=== PATIENT | female | born 1995 | race Caucasian/White ===

== ENCOUNTER 2017-02-10 06:05 | Inpatient (IN) | payer MEDICAID ==
[2017-02-10 06:38] LABS: % BASOPHILS 0.2 % (0.0-2.0); % EOSINOPHILS 3.7 % (0.0-5.0); % LYMPHOCYTES 39.1 % (20.0-50.0); % MONOCYTES 4.6 % (2.0-10.0); % NEUTROPHILS 52.4 % (40.0-80.0); HEMATOCRIT 39.6 % (41.0-60); HEMOGLOBIN 13.7 gm/dL (12-16); MEAN CELL VOLUME 84.5 fl (81-100); MEAN CORPUSCULAR HEMOGLOBIN 29.2 pg (27.0-31.0); MEAN CORPUSCULAR HGB CONC 34.5 pg (28.0-36.0); MEAN PLATELET VOLUME 7.1 fl; NEUTROPHILE ABSOLUTE 6.4 Th/cmm (1.8-8.0); PLATELET COUNT 357 Th/cmm (150-400); RED BLOOD COUNT 4.69 Mil/cmm (3.80-5.10); RED CELL DISTRIBUTION WIDTH 13.3 % (11.5-20.0)
[2017-02-10 06:41] LABS: WHITE BLOOD COUNT 12.3 Th/cmm (4.8-10.8)
[2017-02-10 06:52] LABS: ALB/GLOB RATIO 1.3 (1.0-1.8); ALKALINE PHOSPHATASE 81 U/L (34-104); ANION GAP 7.5 (7.0-16.0); BILIRUBIN,TOTAL 0.3 mg/dL (0.3-1.0); BUN - UREA NITROGEN 14 mg/dL (7-25); BUN/CREATININE RATIO 23.3; CALCIUM SERUM 8.5 mg/dL (8.6-10.3); CARBON DIOXIDE 27.9 mEq/L (21.0-31.0); CHLORIDE 105 mEq/L (98-107); CREATININE - SERUM 0.6 mg/dL (0.6-1.2); GLUCOSE 99 mg/dL (70-105); POTASSIUM SERUM 3.4 mEq/L (3.5-5.1); SGOT 33 U/L (13-39); SGPT/ALT 34 U/L (7-52); SODIUM SERUM 137 mEq/L (136-145)
[2017-02-10 06:53] LABS: URINE BILIRUBIN NEGATIVE (NEGATIVE); URINE BLOOD SMALL (NEGATIVE); URINE GLUCOSE (UA) NEGATIVE (NEGATIVE); URINE KETONE NEGATIVE (NEGATIVE); URINE PROTEIN NEGATIVE (NEGATIVE); URINE UROBILINOGEN 0.2 E.U./dL (0.2 - 1.0)
[2017-02-10 06:54] LABS: URINE COLOR YELLOW
[2017-02-10 06:59] LABS: URINE BACTERIA FEW /hpf (NONE SEEN); URINE EPITHELIAL CELLS MODERATE /lpf (FEW)
[2017-02-10 07:00] LABS: URINE AMORPHOUS SEDIMENT MODERATE PHOSPHATES (NONE SEEN)
--- NOTE | 2017-02-10 07:11 | ED Physician Chart ---
ED Chief Complaint/HPI - Patient Information Date Seen:: 02/10/17 Time Seen:: 15:00 Chief Complaint:: chest pain History of Present Illness:: location: chest quality: sharp pain severity: mild, moderate duration: one hour prior to arrival context: pt reports onset of chest pain, no vomiting, no nausea, no belching. has not had chest pain prior, was wondering if the chest pain was due to an anxiety attack, has prior history of anxiety attacks and sometimes has chest pain. no shortness of breath, no fever. mod factors: none assoc s/s: none hx from pt. Allergies:: Allergies Allergy/AdvReac Type Severity Reaction Status Date / Time No Known Allergies Allergy Verified 02/10/17 06:14 Vitals:: Vital Signs - 8 hr 02/10/17 06:05 Temp 98.1 F HR 76 RR 18 BP 137/63 O2 Sat % 96 Historian:: Patient Review:: Nurse's Note Reviewed ED Review of Systems - Review of Systems General/Constitutional: No fever, No chills, No weight loss, No weakness, No diaphoresis, No edema, No loss of appetite Skin: No skin lesions, No rash, No bruising Head: No headache, No light-headedness Eyes: No loss of vision, No pain, No diplopia ENT: No earache, No nasal drainage, No sore throat, No tinnitus Neck: No neck pain, No swelling, No thyromegaly, No stiffness, No mass noted Cardio Vascular: Chest pain, No palpitations, No PND, No orthopnea, No edema Pulmonary: No SOB, No cough, No sputum, No wheezing GI: No nausea, No vomiting, No diarrhea, No pain, No melena, No hematochezia, No constipation, No hematemesis G/U: No dysuria, No frequency, No hematuria Musculoskeletal: No bone or joint pain, No back pain, No muscle pain Endocrine: No polyuria, No polydipsia Psychiatric: No prior psych history, No depression, Anxiety, No suicidal ideation Hematopoietic: No bruising, No lymphadenopathy Allergic/Immuno: No urticaria, No angioedema Neurological: No syncope, No focal symptoms, No weakness, No paresthesia, No headache, No seizure, No dizziness, No confusion, No vertigo ED Past Medical History - Past Medical History Past Medical History: No significant medical hx, Other Family History: None Social History: Non Smoker, No Alcohol, No Drug Use, Single, Lives With Parents Surgical History: None Psychiatricy History: Other (anxiety) Medication: None Family Medical History - Family Member Mother Hx Family Diabetes: Yes ED Physical Exam - Physical Examination General/Constitutional: Awake, Well-developed, well-nourished, Alert, No distress, GCS 15, Non-toxic appearing, Ambulatory Head: Atraumatic Eyes: Lids, conjuctiva normal, PERRL, EOMI Skin: Nl inspection, No rash, No skin lesions, No ecchymosis, Well hydrated, No lymphadenopathy ENMT: External ears, nose nl, Nasal exam nl, Lips, teeth, gums nl Neck: Nontender, Full ROM w/o pain, No JVD, No nuchal rigidity, No bruit, No mass, No stridor Respiratory: Nl effort/Exclusion, Clear to Auscultation, No Wheeze/Rhonchi/Rales Cardio Vascular: RRR, No murmur, gallop, rubs, NL S1 S2 GI: No tenderness/rebounding/guarding, No organomegaly, Normal BS's, Nondistended, No mass/bruits, No McBurney tenderness : No CVA tenderness Extremities: No tenderness or effusion, Full ROM, normal strength in all extremities, No edema, Normal digits & nails Neuro/Psych: Alert/oriented, Normal sensory exam, Judgement/insight normal, Mood normal, No focal deficits Misc: Normal back, No paraspinal tenderness ED Labs/Radiology/EKG Results - Lab Results Results: Laboratory Tests 02/10/17 02/10/17 02/10/17 06:29 06:30 06:30 WBC 12.3 H RBC 4.69 Hgb 13.7 Hct 39.6 L MCV 84.5 MCH 29.2 MCHC Differential 34.5 RDW 13.3 Plt Count 357 MPV 7.1 Neutrophils % 52.4 Lymphocytes % 39.1 Monocytes % 4.6 Eosinophils % 3.7 Basophils % 0.2 Sodium 137 Potassium 3.4 L Chloride 105 Carbon Dioxide 27.9 Anion Gap 7.5 BUN 14 Creatinine 0.6 Est GFR ( Amer) > 60.0 Est GFR (Non-Af Amer) > 60.0 BUN/Creatinine Ratio 23.3 Glucose 99 Calcium 8.5 L Total Bilirubin 0.3 AST 33 ALT 34 Alkaline Phosphatase 81 Troponin I Total Protein 6.5 Albumin 3.7 Globulin 2.8 Albumin/Globulin Ratio 1.3 Urine Source Urine Color Urine Clarity Urine pH Ur Specific [place] Urine Protein Urine Glucose (UA) Urine Ketones Urine Blood Urine Nitrate Urine Bilirubin Urine Urobilinogen Ur Leukocyte Esterase Urine RBC Urine WBC Ur Epithelial Cells Amorphous Sediment Urine Bacteria POC Ur Test Negative 02/10/17 02/10/17 06:30 06:30 WBC RBC Hgb Hct MCV MCH MCHC Differential RDW Plt Count MPV Neutrophils % Lymphocytes % Monocytes % Eosinophils % Basophils % Sodium Potassium Chloride Carbon Dioxide Anion Gap BUN Creatinine Est GFR ( Amer) Est GFR (Non-Af Amer) BUN/Creatinine Ratio Glucose Calcium Total Bilirubin AST ALT Alkaline Phosphatase Troponin I < 0.01 L Total Protein Albumin Globulin Albumin/Globulin Ratio Urine Source RANDOM Urine Color YELLOW Urine Clarity HAZY Urine pH 7.0 Ur Specific [place] 1.020 Urine Protein NEGATIVE Urine Glucose (UA) NEGATIVE Urine Ketones NEGATIVE Urine Blood SMALL H Urine Nitrate NEGATIVE Urine Bilirubin NEGATIVE Urine Urobilinogen 0.2 Ur Leukocyte Esterase SMALL H Urine RBC 2-5 Urine WBC 6-10 H Ur Epithelial Cells MODERATE Amorphous Sediment MODERATE PHOSPHATES Urine Bacteria FEW POC Ur Test ED Assessment - Assessment General Assessment: medical decision making: pt with no history of cardiac chest pain but pt is morbidly obese more than 125 pounds above ideal body weight. will consider her cardiac eval very seriously as she is at risk for genuine cardiac ischemia. pt is informed of this. and pt says she understands. pt case transfer to Dr. Cabrera at change of shift 0700 ED Septic Shock - . Is Septic Shock (SBP<90, OR Lactate>4 mmol\L) present?: No - <6hrs of presentation: Vital Signs: Vital Signs - 8 hr 02/10/17 06:05 Temp 98.1 F HR 76 RR 18 BP 137/63 O2 Sat % 96
--- NOTE | 2017-02-10 08:39 | Diagnostic Imaging Report ---
Portable chest x-ray History: Chest pain Allowing for portable technique the heart size is normal. No focal pulmonary parenchymal processes. No hilar or mediastinal abnormalities. Impression: No acute abnormalities.
[2017-02-10] MEDS ORDERED: cefTRIAXone 1 GM in Sodium Chloride 0.9% 50 ML IV ONE (08:42)
[2017-02-10] MEDS ORDERED: Potassium Chloride 20 mEq ER Tab PO ONE ×2 (08:43→09:16)
[2017-02-10] MEDS ORDERED: Pneumococcal Vaccine 0.5 mL Vial IM ONE (10:58)
--- NOTE | 2017-02-10 12:33 | History & Physical ---
ADMIT DATE: 02/10/2017 HISTORY OF PRESENT ILLNESS: The patient came to the Emergency Room complaining of chest pain. The patient was admitted for unstable angina, hypokalemia, obesity, angina pectoris, UTI, and sepsis. The patient complaining of pain for the last several days and the patient was seen by Dr. Shell first and then ____. The patient complains of sharp retrosternal chest pain radiating to the back. The patient had no nausea, no vomiting, no diarrhea. No fever, no chills, no rigors, no other problems. REVIEW OF SYSTEMS: Otherwise, negative. PAST MEDICAL HISTORY: As enumerated above. History of prior chest pains, history of obesity. PHYSICAL EXAMINATION: GENERAL: Awake, alert, obese female. VITAL SIGNS: As noted in chart. HEAD: Normal. ENT: Normal. NECK: Supple and nontender. LUNGS: Clear. CARDIOVASCULAR: S1, S2 heard. ABDOMEN: Soft. LABORATORY DATA: First set of cardiac enzymes are normal. WBC was high at 12.3 and troponin was okay. DIAGNOSES: Chest pain, rule out acute coronary syndrome, possible urinary tract infection, leukocytosis, severe obesity. PLAN: The patient is being admitted. I will give her Rocephin and I will have Dr. Padgett see the patient and also we will have Dr. Cody Padgett see the patient. I will follow the patient. JOB# [id number]
[2017-02-11] MEDS ORDERED: cefTRIAXone 1 GM in Sodium Chloride 0.9% 50 ML IV SCH (05:00)
[2017-02-11 05:58] LABS: % BASOPHILS 0.2 % (0.0-2.0); % EOSINOPHILS 2.9 % (0.0-5.0); % MONOCYTES 4.8 % (2.0-10.0); % NEUTROPHILS 64.1 % (40.0-80.0); HEMATOCRIT 40.8 % (41.0-60); HEMOGLOBIN 13.8 gm/dL (12-16); MEAN CELL VOLUME 85.1 fl (81-100); MEAN CORPUSCULAR HEMOGLOBIN 28.9 pg (27.0-31.0); MEAN CORPUSCULAR HGB CONC 33.9 pg (28.0-36.0); MEAN PLATELET VOLUME 7.7 fl; NEUTROPHILE ABSOLUTE 6.6 Th/cmm (1.8-8.0); PLATELET COUNT 340 Th/cmm (150-400); RED BLOOD COUNT 4.79 Mil/cmm (3.80-5.10); RED CELL DISTRIBUTION WIDTH 13.5 % (11.5-20.0); WHITE BLOOD COUNT 10.3 Th/cmm (4.8-10.8)
[2017-02-11 06:15] LABS: BUN - UREA NITROGEN 9 mg/dL (7-25); CALCIUM SERUM 8.9 mg/dL (8.6-10.3); CARBON DIOXIDE 24.6 mEq/L (21.0-31.0); CHLORIDE 105 mEq/L (98-107); CREATININE - SERUM 0.5 mg/dL (0.6-1.2); GLUCOSE 102 mg/dL (70-105); POTASSIUM SERUM 3.6 mEq/L (3.5-5.1); SODIUM SERUM 135 mEq/L (136-145)
--- NOTE | 2017-02-11 10:33 | General Progress Note ---
Subjective - Review of Systems Events since last encounter: patient with no distress Objective - Results Result Diagrams: 02/11/17 04:47 02/11/17 04:47 Recent Labs: Laboratory Last Values WBC 10.3 Th/cmm (4.8-10.8) 02/11/17 04:47 RBC 4.79 Mil/cmm (3.80-5.10) 02/11/17 04:47 Hgb 13.8 gm/dL (12-16) 02/11/17 04:47 Hct 40.8 % (41.0-60) L 02/11/17 04:47 MCV 85.1 fl (81-100) 02/11/17 04:47 MCH 28.9 pg (27.0-31.0) 02/11/17 04:47 MCHC Differential 33.9 pg (28.0-36.0) 02/11/17 04:47 RDW 13.5 % (11.5-20.0) 02/11/17 04:47 Plt Count 340 Th/cmm (150-400) 02/11/17 04:47 MPV 7.7 fl 02/11/17 04:47 Neutrophils % 64.1 % (40.0-80.0) 02/11/17 04:47 Lymphocytes % 28.0 % (20.0-50.0) 02/11/17 04:47 Monocytes % 4.8 % (2.0-10.0) 02/11/17 04:47 Eosinophils % 2.9 % (0.0-5.0) 02/11/17 04:47 Basophils % 0.2 % (0.0-2.0) 02/11/17 04:47 Sodium 135 mEq/L (136-145) L 02/11/17 04:47 Potassium 3.6 mEq/L (3.5-5.1) 02/11/17 04:47 Chloride 105 mEq/L (98-107) 02/11/17 04:47 Carbon Dioxide 24.6 mEq/L (21.0-31.0) 02/11/17 04:47 Anion Gap 9.0 (7.0-16.0) 02/11/17 04:47 BUN 9 mg/dL (7-25) 02/11/17 04:47 Creatinine 0.5 mg/dL (0.6-1.2) L 02/11/17 04:47 Est GFR ( Amer) > 60.0 ml/min (>90) 02/11/17 04:47 Est GFR (Non-Af Amer) > 60.0 ml/min 02/11/17 04:47 BUN/Creatinine Ratio 18.0 02/11/17 04:47 Glucose 102 mg/dL (70-105) 02/11/17 04:47 POC Glucose 106 MG/DL (70 - 105) H 02/10/17 10:43 Whole Bld Lactic Acid 0.67 mmol/L (0.60-1.99) 02/10/17 06:50 Calcium 8.9 mg/dL (8.6-10.3) 02/11/17 04:47 Total Bilirubin 0.3 mg/dL (0.3-1.0) 02/10/17 06:30 AST 33 U/L (13-39) 02/10/17 06:30 ALT 34 U/L (7-52) 02/10/17 06:30 Alkaline Phosphatase 81 U/L (34-104) 02/10/17 06:30 Troponin I < 0.01 ng/mL (0.01-0.05) L 02/10/17 06:30 Total Protein 6.5 gm/dL (6.0-8.3) 02/10/17 06:30 Albumin 3.7 gm/dL (3.7-5.3) 02/10/17 06:30 Globulin 2.8 gm/dL 02/10/17 06:30 Albumin/Globulin Ratio 1.3 (1.0-1.8) 02/10/17 06:30 Urine Source RANDOM 02/10/17 06:30 Urine Color YELLOW 02/10/17 06:30 Urine Clarity HAZY (CLEAR) 02/10/17 06:30 Urine pH 7.0 (4.6 - 8.0) 02/10/17 06:30 Ur Specific [place] 1.020 (1.005-1.030) 02/10/17 06:30 Urine Protein NEGATIVE mg/dL (NEGATIVE) 02/10/17 06:30 Urine Glucose (UA) NEGATIVE mg/dL (NEGATIVE) 02/10/17 06:30 Urine Ketones NEGATIVE mg/dL (NEGATIVE) 02/10/17 06:30 Urine Blood SMALL (NEGATIVE) H 02/10/17 06:30 Urine Nitrate NEGATIVE (NEGATIVE) 02/10/17 06:30 Urine Bilirubin NEGATIVE (NEGATIVE) 02/10/17 06:30 Urine Urobilinogen 0.2 E.U./dL (0.2 - 1.0) 02/10/17 06:30 Ur Leukocyte Esterase SMALL (NEGATIVE) H 02/10/17 06:30 Urine RBC 2-5 /hpf (0-5) 02/10/17 06:30 Urine WBC 6-10 /hpf (0-5) H 02/10/17 06:30 Ur Epithelial Cells MODERATE /lpf (FEW) 02/10/17 06:30 Amorphous Sediment MODERATE PHOSPHATES (NONE SEEN) 02/10/17 06:30 Urine Bacteria FEW /hpf (NONE SEEN) 02/10/17 06:30 POC Ur Test Negative 02/10/17 06:29 - Physical Exam Vitals and I&O: Vital Signs Temp 97.6 F 02/11/17 08:11 Pulse 61 02/11/17 08:11 Resp 18 02/11/17 10:00 BP 127/66 02/11/17 08:11 Pulse Ox 100 02/11/17 08:11 Intake & Output 02/10/17 02/11/17 02/11/17 18:59 06:59 18:59 Intake Total 50 Balance 50 Weight (lbs) 150.457 kg Intake: Intake, IV Amount 50 cefTRIAXone 1 gm In 50 Sodium Chloride 0.9% 50 ml @ 100 mls/hr IV Q24HR [facility] Rx#:[id number] Other: # Voids 1 Active Medications: Current Medications Ceftriaxone Sodium 1 gm/ (Sodium Chloride) 50 mls @ 100 mls/hr IV Q24HR [facility] Stop: 04/12/17 04:59 Last Infusion: 02/11/17 05:41 Dose: Infused General: No acute distress Cardiovascular: Regular rate, Normal S1, Normal S2 Abdomen: Bowel sounds Assessment/Plan - Problem List Patient Problems: All Active Problems Chest pain (Acute) R07.9 Leukocytosis (Acute) D72.829 Possible urinary tract infection (Acute) N39.0 Severe obesity (Acute) E66.01 - Plan Plan: monitor vitals/diet labs f/up consultants
--- NOTE | 2017-02-11 18:34 | Consultation ---
DATE OF CONSULTATION: 02/10/[address] Paredes. HISTORY AND PHYSICAL: This is a 21-year-old morbidly female patient, who had been complaining of chest pain, pressure type. Following this, the patient came to the Emergency Room. According to the patient and the family, the patient is under lot of stress as the patient does not work and has financial problems. PAST MEDICAL HISTORY: Obesity. FAMILY HISTORY: Unremarkable. SOCIAL HISTORY: The patient uses marijuana. ALLERGIES: None. PHYSICAL EXAMINATION: VITAL SIGNS: Blood pressure 130/80, pulse 70, respirations 20. HEAD: Normocephalic. No lumps or bumps. EYES: Pupils equal, reactive to light. Fundi show AV nicking, sclerae white, conjunctivae pink. NECK: Carotid 2+. Normal upstroke. JVD flat. Thyroid not palpable. Lymph nodes not palpable. CHEST: Shows increased AP diameter. No kyphosis, scoliosis. LUNGS: Bilateral bronchovesicular breath sounds. HEART: PMI fifth intercostal space with lateral to midclavicular line. S1, S2. No S3, S4. Systolic murmur, grade 2/6, lower left sternal border without radiation. ABDOMEN: Soft. Liver and spleen are not palpable. No organomegaly. Bowel sounds are active. NEUROLOGIC: Unremarkable. EXTREMITIES: Peripheral pulses 2+. No pedal edema. CLINICAL IMPRESSION: Atypical chest pain, morbid obesity, obstructive sleep apnea, anxiety, marijuana addict. PLAN: The patient's troponin levels normal. EKG unremarkable. The patient is medically stable. The patient to have psych evaluation for anxiety. JOB# [id number]
--- NOTE | 2017-02-14 00:59 | Discharge Summary ---
DATE OF DISCHARGE: 02/11/2017 Basically, this patient came with history of chest pain, acute coronary syndrome, possible UTI, leukocytosis, and severe obesity. The patient ____workup done and the patient was stable. ____ negative. The patient was sent home in stable condition on 02/11/2017. Follow up with me in the office in 2 days and also Psych consultation with ____ for anxiety. JOB# [id number]
== END 2017-02-11 16:30 | disposition home or self-care (01) | DRG 720 ==
LOC: ER 06:05 → TELE 09:05
PROVIDERS: ADMIT Internal Medicine; ATTEND Internal Medicine
DX: A41.9 Sepsis, unspecified organism (principal); I20.0 Unstable angina; N39.0 Urinary tract infection, site not specified; Z68.43 Body mass index [BMI] 50.0-59.9, adult; E66.01 Morbid (severe) obesity due to excess calories; E87.6 Hypokalemia; F41.9 Anxiety disorder, unspecified; R07.89 Other chest pain; G47.33 Obstructive sleep apnea (adult) (pediatric); F12.20 Cannabis dependence, uncomplicated
CPT/HCPCS: 36415-UA; 71010-TC; 80048-TC; 80053-TC; 81001-TC; 81025-TC; 82948-90; 83605; 84484-TC; 85025-TC; 87086-90; 93005; J0696

== ENCOUNTER 2017-02-16 08:29 | Inpatient (IN) | payer MEDICAID ==
--- NOTE | 2017-02-16 08:48 | ED Physician Chart ---
ED Chief Complaint/HPI - Patient Information Date Seen:: 02/16/17 Time Seen:: 08:30 Chief Complaint:: Chest Pain History of Present Illness:: onset x 3.5 hours [employer] of pressure type, locailzed intermittent exertional and pleuritic type chest pain with dyspnea, N/V, and diaphoresis; no H/As, neck pain , cough, Abd. pain, A/D/C, fever, chills, or urinary s/s Allergies:: Allergies Allergy/AdvReac Type Severity Reaction Status Date / Time No Known Allergies Allergy Verified 02/10/17 06:14 Historian:: Patient, Family Member Review:: Nurse's Note Reviewed, Old Chart Reviewed ED Review of Systems - Review of Systems General/Constitutional: Fever, No chills, No weight loss, No weakness, No diaphoresis, No edema, No loss of appetite Skin: No skin lesions, No rash, No bruising Head: No headache, No light-headedness Eyes: No loss of vision, No pain, No diplopia ENT: No earache, Nasal drainage, No sore throat, No tinnitus Neck: No neck pain, No swelling, No thyromegaly, No stiffness, No mass noted Cardio Vascular: Chest pain, Palpitations, No PND, No orthopnea, No edema Pulmonary: SOB, Cough, No sputum, No wheezing GI: Nausea, Vomiting, No diarrhea, No pain, No melena, No hematochezia, No constipation, No hematemesis G/U: Dysuria, No frequency, No hematuria, No nacturia Coal Deliverer: No vaginal discharge, No abnormal vaginal bleed, No contraction Musculoskeletal: No bone or joint pain, No back pain, No muscle pain Endocrine: No polyuria, No polydipsia Psychiatric: No prior psych history, No depression, No anxiety, No suicidal ideation, No homicidal ideation, No auditory hallucination, No visual hallucination Hematopoietic: No bruising, No lymphadenopathy Allergic/Immuno: No urticaria, No angioedema Neurological: No syncope, No focal symptoms, No weakness, No paresthesia, No headache, No seizure, No dizziness, No confusion, No vertigo ED Past Medical History - Past Medical History Obtainable: Yes Past Medical History: Dyslipidemia, Other (Obesity; Angina Pectoris) Family History: Heart disease, Diabetes Melitus, HTN Social History: Non Smoker, No Alcohol, No Drug Use, Single Surgical History: None Psychiatricy History: None Medication: Reviewed Family Medical History - Family Member Mother Ethnicity: Living Status: Still Living Hx Family Cancer: Yes Hx Family Coronary Artery Disease: Yes Hx Family Congestive Heart Failure: No Hx Family Hypertension: Yes Hx Family Stroke: No Hx Family Diabetes: Yes Hx Family Seizures: No Hx Family Dementia: No Hx Family AIDS: No Hx Family HIV: No Hx Family COPD: No Hx Family Hepatitis: No Hx Family Psychiatric Problems: No Hx Family Tuberculosis: No ED Physical Exam - Physical Examination General/Constitutional: Awake, Well-developed, well-nourished, Alert, No distress, GCS 15, Non-toxic appearing, Ambulatory Head: Atraumatic Eyes: Lids, conjuctiva normal, PERRL, EOMI Skin: Nl inspection, No rash, No skin lesions, No ecchymosis, Well hydrated, No lymphadenopathy ENMT: External ears, nose nl, Nasal exam nl, Lips, teeth, gums nl Neck: Nontender, Full ROM w/o pain, No JVD, No nuchal rigidity, No bruit, No mass, No stridor Respiratory: Nl effort/Exclusion, Clear to Auscultation, No Wheeze/Rhonchi/Rales Cardio Vascular: RRR, No murmur, gallop, rubs, NL S1 S2 GI: No tenderness/rebounding/guarding, No organomegaly, No hernia, Normal BS's, Nondistended, No mass/bruits, No McBurney tenderness : No CVA tenderness Extremities: No tenderness or effusion, Full ROM, normal strength in all extremities, No edema, Normal digits & nails Neuro/Psych: Alert/oriented, DTR's symmetric, Normal sensory exam, Normal motor strength, Judgement/insight normal, Mood normal, Normal gait, No focal deficits Misc: Normal back, No paraspinal tenderness ED Labs/Radiology/EKG Results - EKG Interpretations EKG Time:: 08:32 Rate & Rhythm: 73; NSR Comments:: T-Wave inversions/ non-specific st-t changes ED Septic Shock - . Is Septic Shock (SBP<90, OR Lactate>4 mmol\L) present?: No ED Reassessment (Disposition) - Reassessment Reassessment Condition:: Improved - Diagnosis Diagnosis:: Chest Pain; Angina Pectoris; Unstable Angina; Dyspnea; Nausea/Vomiting; Gastritis - Aftercare/Follow up Instructions Aftercare/Follow-Up Instructions:: Counseled pt regarding lab results/diagnosis & need follow up, Counseled pt & family regarding lab results/diagnosis & need follow up - Patient Disposition Discharge/Transfer:: Acute Care w/in this hosp Accepting Physician:: Dr. Paredes Time Called:: 45 Time Responded:: 08:45 Admitted to:: Telemetry Spoke to:: Dr. Paredes Admitting Medical Physician:: Dr. Paredes Condition at Disposition:: Stable, Improved
[2017-02-16 09:18] LABS: % BASOPHILS 1.7 % (0.0-2.0); % LYMPHOCYTES 13.6 % (20.0-50.0); % MONOCYTES 0.7 % (2.0-10.0); HEMATOCRIT 43.1 % (41.0-60); HEMOGLOBIN 14.5 gm/dL (12-16); MEAN CELL VOLUME 84.6 fl (81-100); MEAN CORPUSCULAR HEMOGLOBIN 28.5 pg (27.0-31.0); MEAN CORPUSCULAR HGB CONC 33.7 pg (28.0-36.0); MEAN PLATELET VOLUME 7.3 fl; NEUTROPHILE ABSOLUTE 8.2 Th/cmm (1.8-8.0); PLATELET COUNT 371 Th/cmm (150-400); RED BLOOD COUNT 5.09 Mil/cmm (3.80-5.10); RED CELL DISTRIBUTION WIDTH 13.3 % (11.5-20.0); WHITE BLOOD COUNT 9.9 Th/cmm (4.8-10.8)
[2017-02-16 09:31] LABS: INR 1.09 (0.5-1.4); PROTHROMBIN TIME (TEST) 11.3 SECONDS (9.5-11.5)
[2017-02-16 09:35] LABS: ALB/GLOB RATIO 1.2 (1.0-1.8); ALKALINE PHOSPHATASE 233 U/L (34-104); ANION GAP 11.3 (7.0-16.0); BILIRUBIN,TOTAL 1.4 mg/dL (0.3-1.0); BUN - UREA NITROGEN 9 mg/dL (7-25); CALCIUM SERUM 9.4 mg/dL (8.6-10.3); CARBON DIOXIDE 24.3 mEq/L (21.0-31.0); CHLORIDE 102 mEq/L (98-107); CHOLESTEROL 154 mg/dL (<200); CREATININE - SERUM 0.6 mg/dL (0.6-1.2); GLUCOSE 156 mg/dL (70-105); POTASSIUM SERUM 3.6 mEq/L (3.5-5.1); SGOT 434 U/L (13-39); SGPT/ALT 426 U/L (7-52); SODIUM SERUM 134 mEq/L (136-145); TRIGLYCERIDES 89 mg/dL (<150)
[2017-02-16] MEDS: Morphine Sulfate 2 mg/mL 1mL Syr IVP PRN ×4 (11:04→22:27)
--- NOTE | 2017-02-16 13:53 | Diagnostic Imaging Report ---
Abdominal ultrasound HISTORY: Pain The exam is limited due to patient's size, body habitus, and bowel gas. The liver exhibits a homogeneous parenchyma. No focal lesions. The exam of the gallbladder demonstrates multiple intraluminal echogenic densities with acoustic shadowing. Findings consistent with cholelithiasis. No biliary dilatation (common bile duct equals 5 mm). Pancreas cannot be seen due to bowel gas. The right kidney could not be clearly visualized. The left kidney appears normal. The spleen is normal in size. No other retroperitoneal or intra-abdominal abnormalities. IMPRESSION: 1. Limited exam due to patient's size, body habitus, bowel gas. 2. Findings consistent with cholelithiasis
[2017-02-16] MEDS ORDERED: Maalox 30 mL Cup PO PRN (14:13)
--- NOTE | 2017-02-16 14:19 | Internal Medicine Prog Note ---
Internal Medicine Subjective - Subjective Service Date: 02/16/17 ([facility] dictated [id number]) Internal Medicine Objective - Results Result Diagrams: 02/16/17 09:10 02/16/17 09:10 Recent Labs: Laboratory Last Values WBC 9.9 Th/cmm (4.8-10.8) 02/16/17 09:10 RBC 5.09 Mil/cmm (3.80-5.10) 02/16/17 09:10 Hgb 14.5 gm/dL (12-16) 02/16/17 09:10 Hct 43.1 % (41.0-60) 02/16/17 09:10 MCV 84.6 fl (81-100) 02/16/17 09:10 MCH 28.5 pg (27.0-31.0) 02/16/17 09:10 MCHC Differential 33.7 pg (28.0-36.0) 02/16/17 09:10 RDW 13.3 % (11.5-20.0) 02/16/17 09:10 Plt Count 371 Th/cmm (150-400) 02/16/17 09:10 MPV 7.3 fl 02/16/17 09:10 Neutrophils % 83.0 % (40.0-80.0) H 02/16/17 09:10 Lymphocytes % 13.6 % (20.0-50.0) L 02/16/17 09:10 Monocytes % 0.7 % (2.0-10.0) L 02/16/17 09:10 Eosinophils % 1.0 % (0.0-5.0) 02/16/17 09:10 Basophils % 1.7 % (0.0-2.0) 02/16/17 09:10 PT 11.3 SECONDS (9.5-11.5) 02/16/17 09:10 INR 1.09 (0.5-1.4) 02/16/17 09:10 D-Dimer 404 ng/mL (100-400) H 02/16/17 09:10 Sodium 134 mEq/L (136-145) L 02/16/17 09:10 Potassium 3.6 mEq/L (3.5-5.1) 02/16/17 09:10 Chloride 102 mEq/L (98-107) 02/16/17 09:10 Carbon Dioxide 24.3 mEq/L (21.0-31.0) 02/16/17 09:10 Anion Gap 11.3 (7.0-16.0) 02/16/17 09:10 BUN 9 mg/dL (7-25) 02/16/17 09:10 Creatinine 0.6 mg/dL (0.6-1.2) 02/16/17 09:10 Est GFR ( Amer) > 60.0 ml/min (>90) 02/16/17 09:10 Est GFR (Non-Af Amer) > 60.0 ml/min 02/16/17 09:10 BUN/Creatinine Ratio 15.0 02/16/17 09:10 Glucose 156 mg/dL (70-105) H 02/16/17 09:10 Calcium 9.4 mg/dL (8.6-10.3) 02/16/17 09:10 Total Bilirubin 1.4 mg/dL (0.3-1.0) H 02/16/17 09:10 AST 434 U/L (13-39) H 02/16/17 09:10 ALT 426 U/L (7-52) H 02/16/17 09:10 Alkaline Phosphatase 233 U/L (34-104) H 02/16/17 09:10 Creatine Kinase 37 U/L (30-223) 02/16/17 09:10 Troponin I 0.01 ng/mL (0.01-0.05) 02/16/17 09:10 B-Natriuretic Peptide 18.9 pg/mL (5.0-100.0) 02/16/17 09:10 Total Protein 7.3 gm/dL (6.0-8.3) 02/16/17 09:10 Albumin 4.0 gm/dL (3.7-5.3) 02/16/17 09:10 Globulin 3.3 gm/dL 02/16/17 09:10 Albumin/Globulin Ratio 1.2 (1.0-1.8) 02/16/17 09:10 Triglycerides 89 mg/dL (<150) 02/16/17 09:10 Cholesterol 154 mg/dL (<200) 02/16/17 09:10 LDL Cholesterol Direct 109 mg/dL (75-193) 02/16/17 09:10 HDL Cholesterol 41 mg/dL (23-92) 02/16/17 09:10 Amylase 1205 U/L (29-103) H 02/16/17 09:10 Lipase 4664 U/L (11-82) H 02/16/17 09:10 TSH 0.38 uIU/ml (0.34-5.60) 02/16/17 09:10 Serum , Qual NEGATIVE (NEGATIVE) 02/16/17 09:10 - Physical Exam Vitals and I&O: Vital Signs Temp 97.4 F 02/16/17 09:14 Pulse 75 02/16/17 09:14 Resp 17 02/16/17 09:14 BP 146/84 02/16/17 09:14 Pulse Ox 99 02/16/17 09:14 Active Medications: Current Medications Acetaminophen (Tylenol) 650 mg PO Q4H PRN PRN Reason: Pain (Mild) Stop: 04/17/17 10:12 Al Hydrox/Mg Hydrox/Simethicone (Maalox) 30 ml PO Q6HR PRN PRN Reason: Dyspepsia Stop: 04/17/17 14:12 Aspirin (Aspirin Chewable) 81 mg PO ONCE ONE Stop: 02/17/17 11:01 Dextrose/Sodium Chloride (D5-0.45ns) 1,000 mls @ 100 mls/hr IV .Q10H [facility] Stop: 04/17/17 14:14 Piperacillin Sod/Tazobactam (Sod 3.375 gm/ Sodium Chloride) 50 mls @ 100 mls/ hr IV Q8H [facility] Stop: 04/17/17 14:14 Ibuprofen (Motrin) 400 mg PO Q8H PRN PRN Reason: Pain (Severe) Stop: 04/17/17 10:11 Last Admin: 02/16/17 12:00 Dose: 400 mg Morphine Sulfate (Morphine) 1 mg IVP Q4H PRN PRN Reason: Severe Pain Stop: 04/17/17 10:16 Last Admin: 02/16/17 11:04 Dose: 1 mg Ondansetron HCl (Zofran) 4 mg IV Q6H PRN PRN Reason: Nausea / Vomiting Stop: 04/17/17 10:15 Last Admin: 02/16/17 11:05 Dose: 4 mg Ondansetron HCl (Zofran) 4 mg IV Q8H PRN PRN Reason: Nausea / Vomiting Stop: 04/17/17 14:12 Pantoprazole Sodium (Protonix) 40 mg IVP DAILY [facility] Stop: 04/18/17 08:59 Internal Medicine Assmt/Plan - Assessment Assessment: ACUTE CHEST PAIN BRADYCARDIA ACUTE CHOLELITHIASIS MORBID OBESITY HYPONATREMIA
[2017-02-16] MEDS: D5-0.45NS 1,000 ML IV SCH (15:17)
--- NOTE | 2017-02-16 15:44 | History & Physical ---
ADMIT DATE: 02/16/2017 CHIEF COMPLAINT: Chest pain and abdominal pain. HISTORY OF PRESENT ILLNESS: This is a 21-year-old female with a 3-day history of abdominal pain. The patient was recently discharged from this hospital last week for UTI, sepsis, chest pain, and hypokalemia. Upon examination, the patient complains of epigastric pain radiating to her right upper quadrant. The patient had an abdominal ultrasound done and it was positive for gallstones. The patient denied any fevers at home. PAST MEDICAL HISTORY: Chest pain, obesity. REVIEW OF SYSTEMS: GENERAL: Denies any fever, any chills. CARDIOVASCULAR: Complains of chest pain. RESPIRATORY: Denies shortness of breath. GASTROINTESTINAL: Complaints of abdominal pain. GENITOURINARY: Denies dysuria. All other systems are reviewed by me and are negative. FAMILY HISTORY: Noncontributory. SOCIAL HISTORY: The patient denies any alcohol or illicit drug usage or any tobacco smoking. PHYSICAL EXAMINATION: GENERAL: The patient is awake, alert, in no apparent distress. VITAL SIGNS: Temperature 97.4, heart rate 75, blood pressure is 146/84, respirations 17, and O2 99%. HEENT: Head; normocephalic, atraumatic. NECK: Supple. No mass. LUNGS: Clear bilaterally. HEART: Regular rate and rhythm. ABDOMEN: Soft and nontender. LABORATORY DATA: WBC 9.9, H and H 14.5 and 43.1, and platelet 371. Sodium 134, potassium 3.6, chloride 102, BUN 9, creatinine 0.6. Amylase is 1205 and lipase is 4664. DIAGNOSTICS: The patient had an abdominal ultrasound done and was positive for gallstones. ASSESSMENT: 1. Acute chest pain. 2. Acute cholelithiasis. 3. Morbid obesity. 4. Bradycardia. 5. Hyponatremia. PLAN: The patient to be admitted to the telemetry unit. We will get Cardiology consultation. We will also get a Surgical consult as well. We will keep the patient on empiric IV antibiotics of Zosyn. We will keep the patient n.p.o. The patient to be on IV fluids for hydration and Zofran p.r.n. I explained to patient's parents at length at bedside for the plan of care. All family membranes at bedside, understood and verbalized including the patient. We will continue to follow this patient. Discussed plan of care with Dr. Paredes. JOB# [id number]
[2017-02-16 16:24] LABS: AMPHETAMINE URINE NEGATIVE (NEGATIVE); BARBITURATES URINE NEGATIVE (NEGATIVE); METHADONE URINE NEGATIVE (NEGATIVE)
[2017-02-16] MEDS ORDERED: Pneumococcal Vaccine 0.5 mL Vial IM ONE (16:52)
--- NOTE | 2017-02-16 21:28 | Consultation ---
DATE OF CONSULTATION: 02/16/[address] Paredes. HISTORY AND PHYSICAL: This is a 21-year-old morbidly obese female patient who is marijuana addict. The patient has been complaining of epigastric pain radiating to the chest and the patient has been admitted. The patient has a lot of stress due to no job. PAST MEDICAL HISTORY: Marijuana addict. Chest pain. FAMILY HISTORY: Unremarkable. SOCIAL HISTORY: The patient takes marijuana. . ALLERGIES: None. PHYSICAL EXAMINATION: VITAL SIGNS: Blood pressure 130/80, pulse 70, and respirations 20. HEAD: Normocephalic. No lumps or bumps. EYES: Pupils are equal and reactive to light. Fundi show AV nicking, sclerae white, and conjunctivae pink. NECK: Carotid 2+. Normal upstroke. JVD flat. Thyroid not palpable. Lymph nodes not palpable. CHEST: Shows increased AP diameter. No kyphosis or scoliosis. LUNGS: Bilateral bronchovesicular breath sounds. HEART: PMI fifth intercostal space with lateral to midclavicular line. S1, S2. No S3, S4. Systolic murmur, grade 2/6, lower left sternal border without radiation. ABDOMEN: Soft. Liver and spleen not palpable. No organomegaly. Bowel sounds active. NEUROLOGIC: Unremarkable. EXTREMITIES: Peripheral pulses 2+. No pedal edema. CLINICAL IMPRESSION: Epigastric pain, rule out cholecystitis, morbid obesity, marijuana addict, morbid obesity, gastroesophageal reflux disease, obstructive sleep apnea, and atypical chest pain. PLAN: The patient to have troponin level. We will get echocardiogram as well as ultrasound of the abdomen. JOB# [id number]
[2017-02-17] MEDS: D5-0.45NS 1,000 ML IV SCH (01:46)
[2017-02-17] MEDS: Morphine Sulfate 2 mg/mL 1mL Syr IVP PRN ×3 (02:59→09:43)
[2017-02-17 05:15] LABS: RED CELL DISTRIBUTION WIDTH 13.3 % (11.5-20.0)
[2017-02-17 05:19] LABS: HEMOGLOBIN 13.8 gm/dL (12-16); MEAN CELL VOLUME 84.6 fl (81-100); MEAN CORPUSCULAR HEMOGLOBIN 29.3 pg (27.0-31.0); MEAN CORPUSCULAR HGB CONC 34.6 pg (28.0-36.0); MEAN PLATELET VOLUME 7.4 fl; PLATELET COUNT 349 Th/cmm (150-400); RED BLOOD COUNT 4.73 Mil/cmm (3.80-5.10)
[2017-02-17 05:29] LABS: WHITE BLOOD COUNT 15.4 Th/cmm (4.8-10.8)
[2017-02-17 05:33] LABS: CHOLESTEROL 135 mg/dL (<200); TRIGLYCERIDES 78 mg/dL (<150)
[2017-02-17 05:36] LABS: ALB/GLOB RATIO 1.2 (1.0-1.8); ALKALINE PHOSPHATASE 215 U/L (34-104); ANION GAP 9.4 (7.0-16.0); BILIRUBIN,TOTAL 0.8 mg/dL (0.3-1.0); BUN - UREA NITROGEN 9 mg/dL (7-25); CALCIUM SERUM 8.7 mg/dL (8.6-10.3); CARBON DIOXIDE 25.7 mEq/L (21.0-31.0); CHLORIDE 106 mEq/L (98-107); CREATININE - SERUM 0.6 mg/dL (0.6-1.2); GLUCOSE 133 mg/dL (70-105); POTASSIUM SERUM 3.1 mEq/L (3.5-5.1); SGOT 154 U/L (13-39); SGPT/ALT 369 U/L (7-52); SODIUM SERUM 138 mEq/L (136-145)
[2017-02-17 05:54] LABS: BAND NEUTROPHILE 3 % (0-10); NEUTROPHILS 81 % (40-80); TOTAL CELLS COUNTED 100
[2017-02-17] MEDS ORDERED: Aspirin 81mg Chewable Tab PO ONE (11:00)
--- NOTE | 2017-02-17 12:17 | Consultation ---
Consult Note - Consult Note Service Date: 02/17/17 Referring Physician: Jose Alfredo Paredes Consult Note: PHYSICIAN Consultation Note: Date of Admission: 02/16/17 Purpose of Consultation: [place]lithiasis and pancreatitis, leukocytosis. Chief Complaint: 1 year old female with h/o LINDA, obesity, admitted with abdominal pain. further evaluation, revealed Cholecystitis and pancreatitis. ID consult was called for antibiotic management. She was treated for UTI recently. History of Present Illness: Past Medical History: Obesity, LINDA. Diagnoses MORBID (SEVERE) OBESITY DUE TO EXCESS CALORIES (02/16/17) HYPO-OSMOLALITY AND HYPONATREMIA (02/16/17) OBSTRUCTIVE SLEEP APNEA (ADULT) (PEDIATRIC) (02/16/17) GASTRO-ESOPHAGEAL REFLUX DISEASE WITHOUT ESOPHAGITIS (02/16/17) CALCULUS OF GALLBLADDER W/O CHOLECYSTITIS W/O OBSTRUCTION (02/16/17) BRADYCARDIA, UNSPECIFIED (02/16/17) CHEST PAIN, UNSPECIFIED (02/16/17) BODY MASS INDEX (BMI) 50-59.9 , ADULT (02/16/17) Allergies Allergy/AdvReac Type Severity Reaction Status Date / Time No Known Allergies Allergy Verified 02/10/17 06:14 Vital Signs Temp 99 F 02/17/17 10:37 Pulse 77 02/17/17 10:37 Resp 18 02/17/17 10:37 BP 136/71 02/17/17 10:37 Pulse Ox 94 02/17/17 10:37 Intake & Output 02/16/17 02/17/17 02/17/17 18:59 06:59 18:59 Intake Total 150 1050 0 Balance 150 1050 0 Weight (lbs) 145.773 kg 148.552 kg 148.552 kg Intake: Intake, IV Amount 50 1050 D5-0.45NS 1,000 ml @ 100 1000 mls/hr IV .Q10H GEOVANNA Rx#: [id number] Piperacillin Sodium/ 50 50 Tazobact 3.375 gm In Sodium Chloride 0.9% 50 ml @ 100 mls/hr IV Q8HR GEOVANNA Rx#:[id number] Oral 100 0 Other: # Voids 2 # Bowel Movements 0 Laboratory Results - last 24 hr 02/16/17 02/16/17 02/17/17 15:58 17:25 01:08 WBC RBC Hgb Hct MCV MCH MCHC Differential RDW Plt Count MPV Band Neutrophils % Neutrophils (Manual) Lymphocytes Monocytes Sodium Potassium Chloride Carbon Dioxide Anion Gap BUN Creatinine Est GFR ( Amer) Est GFR (Non-Af Amer) BUN/Creatinine Ratio Glucose Hemoglobin A1c % Calcium Total Bilirubin AST ALT Alkaline Phosphatase Troponin I < 0.01 L 0.01 Total Protein Albumin Globulin Albumin/Globulin Ratio Triglycerides Cholesterol LDL Cholesterol Direct HDL Cholesterol Urine Opiates Screen POSITIVE H Urine Methadone Screen NEGATIVE Ur Barbiturates Screen NEGATIVE Ur Tricyclics Screen NEGATIVE Ur Phencyclidine Scrn NEGATIVE Amphetamines Screen NEGATIVE U Methamphetamines Scrn NEGATIVE U Benzodiazepines Scrn NEGATIVE U Cocaine Metab Screen NEGATIVE U Cannabinoids Screen POSITIVE H 02/17/17 02/17/17 02/17/17 04:40 04:40 04:40 WBC 15.4 H D RBC 4.73 Hgb 13.8 Hct 40.0 L MCV 84.6 MCH 29.3 MCHC Differential 34.6 RDW 13.3 Plt Count 349 MPV 7.4 Band Neutrophils % 3 Neutrophils (Manual) 81 H Lymphocytes 15 L Monocytes 1 L Sodium 138 Potassium 3.1 L Chloride 106 Carbon Dioxide 25.7 Anion Gap 9.4 BUN 9 Creatinine 0.6 Est GFR ( Amer) > 60.0 Est GFR (Non-Af Amer) > 60.0 BUN/Creatinine Ratio 15.0 Glucose 133 H Hemoglobin A1c % Calcium 8.7 Total Bilirubin 0.8 AST 154 H ALT 369 H Alkaline Phosphatase 215 H Troponin I Total Protein 6.6 Albumin 3.6 L Globulin 3.0 Albumin/Globulin Ratio 1.2 Triglycerides 78 Cholesterol 135 LDL Cholesterol Direct 92 HDL Cholesterol 38 Urine Opiates Screen Urine Methadone Screen Ur Barbiturates Screen Ur Tricyclics Screen Ur Phencyclidine Scrn Amphetamines Screen U Methamphetamines Scrn U Benzodiazepines Scrn U Cocaine Metab Screen U Cannabinoids Screen 02/17/17 04:40 WBC RBC Hgb Hct MCV MCH MCHC Differential RDW Plt Count MPV Band Neutrophils % Neutrophils (Manual) Lymphocytes Monocytes Sodium Potassium Chloride Carbon Dioxide Anion Gap BUN Creatinine Est GFR ( Amer) Est GFR (Non-Af Amer) BUN/Creatinine Ratio Glucose Hemoglobin A1c % 5.7 Calcium Total Bilirubin AST ALT Alkaline Phosphatase Troponin I Total Protein Albumin Globulin Albumin/Globulin Ratio Triglycerides Cholesterol LDL Cholesterol Direct HDL Cholesterol Urine Opiates Screen Urine Methadone Screen Ur Barbiturates Screen Ur Tricyclics Screen Ur Phencyclidine Scrn Amphetamines Screen U Methamphetamines Scrn U Benzodiazepines Scrn U Cocaine Metab Screen U Cannabinoids Screen Home Medication Medication Instructions Recorded Type NK [No Home Meds] 02/16/17 History Current Medications Generic Name Dose Route Start Last Admin Trade Name Freq PRN Reason Stop Dose Admin Acetaminophen 650 mg 02/16/17 10:13 Tylenol PO 04/17/17 10:12 Q4H PRN Pain (Mild) Al Hydrox/Mg Hydrox/Simethicone 30 ml 02/16/17 14:13 Maalox PO 04/17/17 14:12 Q6HR PRN Dyspepsia Dextrose/Sodium Chloride 1,000 mls @ 100 mls/hr 02/16/17 14:15 02/17/17 01:46 D5-0.45ns IV 04/17/17 14:14 100 mls/hr .Q10H GEOVANNA Administration Piperacillin Sod/Tazobactam 50 mls @ 100 mls/hr 02/16/17 15:00 02/17/17 04:32 Sod 3.375 gm/ Sodium Chloride IV 04/17/17 14:59 100 mls/hr Q8HR GEOVANNA Administration Ibuprofen 400 mg 02/16/17 10:12 02/16/17 12:00 Motrin PO 04/17/17 10:11 400 mg Q8H PRN Administration Pain (Severe) Lorazepam 1 mg 02/16/17 19:19 Ativan PO 04/17/17 19:18 Q6HR PRN Anxiety Protocol Morphine Sulfate 2 mg 02/16/17 22:20 02/17/17 09:43 Morphine IVP 04/17/17 22:19 2 mg Q3H PRN Administration Severe Pain Ondansetron HCl 4 mg 02/16/17 10:16 02/17/17 09:43 Zofran IV 04/17/17 10:15 4 mg Q6H PRN Administration Nausea / Vomiting Ondansetron HCl 4 mg 02/16/17 14:13 Zofran IV 04/17/17 14:12 Q8H PRN Nausea / Vomiting Pantoprazole Sodium 40 mg 02/17/17 09:00 02/17/17 09:43 Protonix IVP 04/18/17 08:59 40 mg DAILY GEOVANNA Administration Review of Systems: A 12 point ROS was reviewed with the pertinent positive and negatives noted in the HPI. Social History Lives at home. Smoking Status Current some day smoker Drug Use Yes: use marijuana for anxiety Alcohol Use No Family Medical History Family Medical History Start: 02/16/17 09: 39 Freq: ONCE Status: Active Document 02/16/17 09:39 WOODY (Rec: 02/16/17 16:45 WOODY [id number]) Family Medical History Mother History Unknown Yes Ethnicity Living Status Still Living Hx Family Cancer No Hx Family Coronary Artery Disease No Hx Family Congestive Heart Failure No Hx Family Hypertension No Hx Family Stroke No Hx Family Diabetes Yes Hx Family Seizures No Hx Family Dementia No Hx Family AIDS No Hx Family HIV No Hx Family COPD No Hx Family Hepatitis No Hx Family Psychiatric Problems No Hx Family Tuberculosis No Physical Exam: General: Obese, comfortable. not indistress, nontoxic. HEENT: Head ; normocephalic, atraumatic. Face symmetrical. Oral cavity: Moist pink tongue. Eyes : pallor is present. no icterus. Neck: Supple, no JVD,n o carotid bruit. Cardio: S1 and S2 WNL. No focal neurodeficit. Respiratory: Vesicular breath sounds. Abdominal: soft tenderness in upper abdomen. Camargo' sign positive. Genital/Urinary: deferred Extremities: NCCE, Pulses palpable in all four limbs. Neurological: AAO x 3. No focal neurodeficit. Assessment: 1. Leukocytosis. 2. Cholelithiasis. 3. Pancreattis. 4. Obesity. 5. LINDA. Plan: Continue Zosyn. surgical consultants and Gi consultants are following. Thank you, Dr Paredes for invovling me in taking care of this patient. Blake, Carlos Padgett M.D. [id number]
--- NOTE | 2017-02-17 14:50 | Cardiology ---
02/16/[address] Paredes. M-MODE ECHOCARDIOGRAM: Mitral valve, anterior leaflet of mitral valve shows normal excursion, EF velocity. Posterior leaflet of mitral valve shows normal excursion. Left ventricular posterior wall shows increased thickness, normal excursion. Interventricular septum shows increased thickness, normal excursion, hypertrophy of the left ventricle, ejection fraction 60%. Left atrium normal. Aortic root shows normal dimension, normal excursion of aortic leaflets. CONCLUSION: Hypertrophy of the left ventricle, ejection fraction 60%. 2D ECHO: Long axis view showed normal sized left ventricle with hypertrophy of the left ventricle. Left atrium normal. Aortic root shows normal dimension, normal excursion of aortic leaflets. Short axis view of mitral valve normal. Short axis view of aortic valve normal. Apical four chamber view showed normal sized left ventricle with hypertrophy of the left ventricle. Left atrium normal. Right ventricular cavity, right atrium normal, no pericardial effusion. CONCLUSION: Hypertrophy of the left ventricle, ejection fraction 60%. Doppler study shows trace tricuspid regurgitation, prominent A wave consistent with poor compliance of left ventricle. Right ventricular systolic pressure of ____ mmHg. CONCLUSION: Hypertrophy of the left ventricle, trace tricuspid regurgitation, ejection fraction 60%. JOB# [id number]
--- NOTE | 2017-02-17 22:51 | Consultation ---
DATE OF CONSULTATION: 02/17/2017 REQUESTING PHYSICIAN: Angela Paredes M.D. REASON FOR CONSULTATION: Abdominal pain. HISTORY OF PRESENT ILLNESS: A 21-year-old morbidly obese female admitted for epigastric abdominal pain and chest pain for the last day or so. She had nausea and vomiting without fevers or chills, diarrhea or constipation. She was diagnosed with acute pancreatitis based on elevation of lipase. She also had cholelithiasis based on imaging. We were asked to evaluate the patient for her abdominal pain. She never had pancreatitis previously. PAST MEDICAL HISTORY: As above. MEDICATIONS: Here include Tylenol, Maalox, aspirin, IV fluids, Ativan p.r.n., morphine p.r.n., Zofran p.r.n., Protonix, Zosyn. ALLERGIES: None. SOCIAL HISTORY: No recent tobacco or alcohol. Positive for cannabis. FAMILY HISTORY: Noncontributory. REVIEW OF SYSTEMS: Negative. PHYSICAL EXAMINATION: VITAL SIGNS: Vital signs noted. GENERAL: The patient is well-developed, obese female in no acute distress. CARDIOVASCULAR: Regular rate and rhythm. HEENT: Sclerae nonicteric. Oropharynx is clear. LUNGS: Clear to auscultation bilaterally. ABDOMEN: Soft, mild epigastric tenderness to palpation, morbidly obese habitus. EXTREMITIES: No clubbing, cyanosis or edema. RECTAL: Deferred. LABORATORY DATA AND IMAGING: WBC 15.4, hemoglobin 13.8, platelet count 349. INR is 1.1. Creatinine is normal. Bilirubin 0.8, AST 154, ALT 369, alkaline phosphatase 215, albumin 3.6. Amylase 1205. Lipase 4664. TSH normal. Urine test negative. Urine toxicology screen positive for opiates and cannabis. Abdominal ultrasound. showed limited examination, but cholelithiasis with nondilated common bile duct at 5 mm. IMPRESSION: 1. Abdominal pain secondary to acute gallstone pancreatitis. 2. Cholelithiasis. 3. Elevated liver enzymes, rule out spontaneously passed versus retained common bile duct stone. 4. Morbid obesity. RECOMMENDATIONS: 1. We will arrange for an MRCP to take place where allowed by weight limits. 2. IV fluids. 3. Pain control measures. 4. Antacids and antiemetics. 5. Surgical evaluation for consideration of cholecystectomy. 6. If MRCP shows CBD stone, then will need ERCP to clear the bile duct. If MRCP is negative, then may proceed with laparoscopic cholecystectomy as per the discretion of the surgeon. Thank you Dr. Angela Paredes for involving us in the care of this patient. If you have any further questions, please call us. JOB# [id number]
== END 2017-02-17 13:00 | disposition short-term general hospital (02) | DRG 282 ==
LOC: ER 08:29 → TELE 09:30
PROVIDERS: ADMIT Internal Medicine; ATTEND Internal Medicine
DX: K85.10 Biliary acute pancreatitis without necrosis or infection (principal); I20.0 Unstable angina; E87.1 Hypo-osmolality and hyponatremia; K81.9 Cholecystitis, unspecified; E66.01 Morbid (severe) obesity due to excess calories; R00.1 Bradycardia, unspecified; K21.9 Gastro-esophageal reflux disease without esophagitis; G47.33 Obstructive sleep apnea (adult) (pediatric); E78.5 Hyperlipidemia, unspecified; K29.70 Gastritis, unspecified, without bleeding; F12.20 Cannabis dependence, uncomplicated; R07.89 Other chest pain; F17.210 Nicotine dependence, cigarettes, uncomplicated; Z82.49 Family history of ischemic heart disease and other diseases of the circulatory system; Z68.43 Body mass index [BMI] 50.0-59.9, adult; Z83.3 Family history of diabetes mellitus
CPT/HCPCS: 36415-UA; 76700-TC; 80053-TC; 80061-TC; 80307; 82150-TC; 82550-TC; 83036-90; 83690-TC; 83880-TC; 84443-TC; 84484-TC; 84703-TC; 85007-TC; 85025-TC; 85027-TC; 85379-TC; 85610-TC; 93005; 94760; C9113; J2270; J2405; J2543; Z7610

== ENCOUNTER 2018-07-28 20:17 | Emergency (ER) | payer MEDICAID ==
--- NOTE | 2018-08-12 16:29 | ER Physician Documentation ---
DATE OF SERVICE: 07/28/2018 HISTORY OF PRESENT ILLNESS: This is a 23-year-old female patient who presents with onset x 3 days of sore throat, cough and congestion. The patient denies trauma, headaches, neck pain, chest pain, shortness of breath, abdominal pain, anorexia, nausea, vomiting, diarrhea, constipation or urinary signs and symptoms. The patient is eating and urinating well. The patient's last urine was about an hour prior to admission. PAST MEDICAL HISTORY: The patient has a history of urinary tract infection, obesity, leukocytosis and chest pain in the past as well as epigastric pain. MEDICATIONS: Per nurse's notes. ALLERGIES: There are no known allergies. SOCIAL HISTORY: The patient denies smoking, alcohol use or drug abuse. FAMILY HISTORY: Not known. REVIEW OF SYSTEMS: Otherwise, essentially noncontributory. PHYSICAL EXAMINATION: GENERAL: The patient is in no acute distress, alert and oriented x 3, afebrile. VITAL SIGNS: Stable. HEENT: Revealed that the pharynx is injected. There are no exudates. There are no abscesses. There are no foreign bodies. There is no evidence of airway obstruction. Positive nasal congestion. NECK: Supple, no meningeal signs. No cervical tenderness. No bruits. CARDIOVASCULAR: Regular rate and rhythm. LUNGS: Clear with good breath sounds bilaterally. ABDOMEN: Soft, nontender, normoactive bowel sounds. No pulsatile masses. EXTREMITIES: No edema, clubbing or cyanosis. NEUROLOGIC: Show no focal signs. Oral exam revealed the pharynx to be injected as above. The tongue is positive for oral thrush. HOSPITAL COURSE: The patient tolerated oral fluids well and was thus discharged. The patient was discharged with a prescription for amoxicillin 500 mg 3 times a day for 10 days, nystatin oral suspension 1 mL oral swishes 4 times a day for 7 days, Tylenol 500 mg 4 times a day p.r.n. fever, cool mist vaporizer, salt water gargles. Encourage fluids. The patient is to be referred to an Ear, Nose and Throat specialist and Internal Medicine, Dr. Amin as soon as possible. Otherwise, followup care with primary physician in one day or as needed. Aftercare instructions were given for all above diagnosis. Return to Emergency Room as needed if concerned. FINAL DIAGNOSES: Oral thrush, oral candidiasis, sore throat, pharyngitis, congestion, sinusitis, cough, bronchitis, fever, upper respiratory tract infection. JOB# [id number]
== END 2018-07-28 20:58 | disposition home or self-care (01) ==
LOC: ER 20:17
DX: J40 Bronchitis, not specified as acute or chronic (principal); B37.0 Candidal stomatitis; J06.9 Acute upper respiratory infection, unspecified; J32.9 Chronic sinusitis, unspecified
CPT/HCPCS: Z7502

== ENCOUNTER 2018-10-19 21:58 | Emergency (ER) | payer MEDICAID ==
--- NOTE | 2018-10-19 22:22 | ED Physician Chart ---
ED Chief Complaint/HPI - Patient Information Date Seen:: 10/19/18 Time Seen:: 22:17 Chief Complaint:: SOB History of Present Illness:: 23 yo female had SOB for 1 day. Pt has been using albuterol nebulizer 3 times throughout the day without relief. Therefore, pt presented to ER. Pt had fever, chills and vomiting. Yesterday, pt had runny nose, sore throat and left ear pain , cough productive of green sputum. Allergies:: Allergies Allergy/AdvReac Type Severity Reaction Status Date / Time No Known Allergies Allergy Verified 02/10/17 06:14 Vitals:: Vital Signs - 8 hr 10/19/18 22:07 Temp 97.8 F HR 101 RR 18 BP 111/79 O2 Sat % 95 ED Review of Systems - Review of Systems General/Constitutional: Fever, Chills, Weakness Skin: No rash Head: Headache, Light headed Eyes: No pain ENT: Earache Neck: No neck pain Cardio Vascular: No chest pain Pulmonary: SOB, Cough, Sputum GI: Nausea, Vomiting G/U: No dysuria Musculoskeletal: No bone or joint pain Neurological: No focal symptoms ED Past Medical History - Past Medical History Past Medical History: Other (Anemia due to heavy menstural periods) Social History: Smoker, No Alcohol, Illicit Drug Use (marijuana) Surgical History: Cholecystectomy Family Medical History - Family Member Mother History Unknown: Yes Ethnicity: Living Status: Still Living Hx Family Cancer: No Hx Family Coronary Artery Disease: No Hx Family Congestive Heart Failure: No Hx Family Hypertension: No Hx Family Stroke: No Hx Family Diabetes: Yes Hx Family Seizures: No Hx Family Dementia: No Hx Family AIDS: No Hx Family HIV: No Hx Family COPD: No Hx Family Hepatitis: No Hx Family Psychiatric Problems: No Hx Family Tuberculosis: No ED Physical Exam - Physical Examination General/Constitutional: Awake, Alert Head: Atraumatic Eyes: PERRL, EOMI Skin: No skin lesions ENMT: TM canals nl, Nasal exam nl Other ENMT comments:: Left TM erythema Neck: No nuchal rigidity Other Respiratory comments:: Rhonchi Cardio Vascular: RRR, No murmur, gallop, rubs, NL S1 S2 GI: No tenderness/rebounding/guarding Extremities: normal strength in all extremities Neuro/Psych: Normal motor strength, No focal deficits ED Labs/Radiology/EKG Results - Lab Results Results: WBC 12.1, Neut 80.5% ED Assessment - Assessment General Assessment: Bronchi ED Septic Shock - <6hrs of presentation: Vital Signs: Vital Signs - 8 hr 10/19/18 22:07 Temp 97.8 F HR 101 RR 18 BP 111/79 O2 Sat % 95
[2018-10-19] MEDS ORDERED: Albuterol/Ipratropium Neb 3 ML AERS HHN ONE ×2 (22:44→23:56)
[2018-10-19] MEDS: Albuterol/Ipratropium Neb 3 ML AERS HHN ONE ×2 (22:45→23:55)
[2018-10-19 23:06] LABS: ALB/GLOB RATIO 1.2 (1.0-1.8); ALBUMIN 3.8 gm/dL (3.7-5.3); ALKALINE PHOSPHATASE 51 U/L (34-104); ANION GAP 13.1 (7.0-16.0); BILIRUBIN,TOTAL 0.6 mg/dL (0.3-1.0); BUN - UREA NITROGEN 8 mg/dL (7-25); CALCIUM SERUM 8.9 mg/dL (8.6-10.3); CARBON DIOXIDE 20.2 mEq/L (21.0-31.0); CHLORIDE 105 mEq/L (98-107); CREATININE - SERUM 0.5 mg/dL (0.6-1.2); GFR AFRICAN-AMERICAN > 60.0 ml/min (>90); GFR NON AFRICAN-AMERICAN > 60.0 ml/min; GLUCOSE 95 mg/dL (70-105); POTASSIUM SERUM 3.3 mEq/L (3.5-5.1); SGOT 12 U/L (13-39); SGPT/ALT 10 U/L (7-52); SODIUM SERUM 135 mEq/L (136-145)
[2018-10-19 23:13] LABS: URINE SOURCE CLEAN C
[2018-10-19 23:16] LABS: URINE BILIRUBIN NEGATIVE (NEGATIVE); URINE BLOOD SMALL (NEGATIVE); URINE GLUCOSE (UA) NEGATIVE (NEGATIVE); URINE KETONE 15 mg/dL (NEGATIVE); URINE LEUKOCYTE ESTERASE TRACE (NEGATIVE); URINE MICROSCOPIC INDICATED? YES; URINE NITRATE NEGATIVE (NEGATIVE); URINE PROTEIN NEGATIVE (NEGATIVE); URINE UROBILINOGEN 0.2 E.U./dL (0.2 - 1.0)
[2018-10-19 23:31] LABS: URINE CLARITY HAZY (CLEAR); URINE COLOR YELLOW
[2018-10-19 23:33] LABS: URINE BACTERIA FEW /hpf (NONE SEEN); URINE EPITHELIAL CELLS FEW /lpf (FEW); URINE RBC 0-2 /hpf (0-5); URINE WBC 0-2 /hpf (0-5)
[2018-10-19] MEDS ORDERED: Potassium Chloride 20 mEq ER Tab PO ONE (23:40)
[2018-10-19] MEDS: Potassium Chloride 20 mEq ER Tab PO ONE (23:44)
[2018-10-20] MEDS: Sodium Chloride 0.9% 1,000 ML IV ONE (00:35)
[2018-10-20] MEDS: cefTRIAXone 1 GM in Sodium Chloride 0.9% 50 ML IV ONE (00:36)
[2018-10-20] MEDS: Azithromycin 500 MG in Sodium Chloride 0.9% 250 ML IV ONE (01:06)
[2018-10-20 01:56] LABS: HEMATOCRIT 40.1 % (41.0-60); HEMOGLOBIN 13.2 gm/dL (12-16); MEAN CELL VOLUME 86.8 fl (81-100); MEAN CORPUSCULAR HEMOGLOBIN 28.7 pg (27.0-31.0); RED BLOOD COUNT 4.62 Mil/cmm (3.80-5.10)
[2018-10-20 01:57] LABS: % BASOPHILS 0.7 % (0.0-2.0); % EOSINOPHILS 2.7 % (0.0-5.0); % LYMPHOCYTES 12.1 % (20.0-50.0); % NEUTROPHILS 80.5 % (40.0-80.0); BASOPHILE ABSOLUTE 0.1 Th/cumm (0-0.2); EOSINOPHILE ABSOLUTE 0.3 Th/cmm (0.1-0.4); LYMPHOCYTE ABSOLUTE 1.5 Th/cmm (1.5-3.0); MONOCYTE ABSOLUTE 0.5 Th/cmm (0.3-1.0); NEUTROPHILE ABSOLUTE 9.7 Th/cmm (1.8-8.0); PLATELET COUNT 301 Th/cmm (150-400)
[2018-10-20 01:58] LABS: WHITE BLOOD COUNT 12.1 Th/cmm (4.8-10.8)
--- NOTE | 2018-10-20 08:53 | Diagnostic Imaging Report ---
Portable chest x-ray History: Cough Allowing for portable technique the heart size is normal. No focal pulmonary parenchymal processes. No hilar or mediastinal abnormalities. Impression: No acute abnormalities.
== END 2018-10-20 02:27 | disposition home or self-care (01) ==
LOC: ER 21:58
DX: J40 Bronchitis, not specified as acute or chronic (principal); F17.200 Nicotine dependence, unspecified, uncomplicated; Z90.49 Acquired absence of other specified parts of digestive tract
CPT/HCPCS: 99284; 96365; 96367; 96375; 94640 ×2; 71045; 36415; 85025; 81001; 80053; J2405; J2930; J0696; J0456; J7030